=== PATIENT | female | born 1995 | race Caucasian/White ===

== ENCOUNTER 2020-05-03 08:00 | Inpatient (IN) ==
[2020-05-03] MEDS ORDERED: Famotidine 20 MG/2 ML VIAL IVP PRN (08:13)
[2020-05-03] MEDS ORDERED: Ondansetron 4 MG/2 ML VIAL IVP PRN (08:13)
[2020-05-03] MEDS ORDERED: Naloxone 0.4 MG/ML INJ IVP PRN (08:13)
[2020-05-03] MEDS ORDERED: Metoclopramide 10 MG/2 ML VIAL IVP PRN (08:13)
[2020-05-03] MEDS ORDERED: Oxytocin 20 units/ LR 1000 mL 20 UNIT/1,000 ML BAG IVC SCH (09:30)
[2020-05-03] MEDS ORDERED: miSOPROStoL 25 MCG TABLET PO PRN ×2 (09:30→10:08)
[2020-05-03 09:55] LABS: Amphetamine Screen,Urine Negative ng/mL (Cutoff=1000); Barbiturate Screen,Urine Negative ng/mL (Cutoff=200)
[2020-05-03 09:56] LABS: Benzodiazepines Screen,Urine Negative ng/mL (Cutoff=300); Cannabinoid Screen,Urine Negative ng/mL (Cutoff = 50); Cocaine Screen,Urine Negative ng/mL (Cutoff= 300); Opiate Screen,Urine Negative ng/mL (Cutoff=300); Phencyclidine Screen,Urine Negative ng/mL (Cutoff=25)
[2020-05-03 09:59] LABS: Basophils % 0.3 %; Eosinophils % 0.4 %; Hematocrit 30.8 % (35.3-44.9); Immature Granulocytes % 0.7 % (0-4); Lymphocytes # 1.4 K/mcL (0.6-4.6); Lymphocytes % 18.5 %; Mean Corpuscular HGB Conc 32.5 g/dL (31.6-35.5); Mean Corpuscular Hemoglobin 27.3 pg (28.0-33.3); Mean Corpuscular Volume 84.2 fL (83.0-100.0); Mean Platelet Volume 10.5 fL (9.4-12.4); Monocytes # 0.5 K/mcL (0.0-1.3); Monocytes % 7.2 %; Neutrophils # 5.4 K/mcL (1.6-8.9); Platelet Count 203 K/mcL (140-400); Red Blood Count 3.66 M/mcL (3.82-4.97); Red Cell Distribution Width 13.5 % (11.5-14.5); Segmented Neutrophils % 72.9 %; White Blood Count 7.5 K/mcL (4.3-11.1)
[2020-05-03] MEDS ORDERED: EPHEDrine 50 MG/ML VIAL IVP PRN (10:47)
[2020-05-03] MEDS ORDERED: Epidural Premix (fent/bupiv) 110 ML EP SCH (11:00)
[2020-05-03] MEDS: Ringers Solution, Lactated 1,000 ML IVC SCH ×2 (16:01→19:49)
[2020-05-03] MEDS ORDERED: Ropivacaine/PF 0.2% 20 ML VIAL ONE (19:20)
[2020-05-03] MEDS ORDERED: *HR* FentaNYL (PF) 100 MCG/2 ML VIAL ONE (19:20)
[2020-05-04] MEDS ORDERED: Lidocaine 1% 20 ML MDV ONE (00:01)
[2020-05-04] MEDS ORDERED: Oxytocin 20 units/ LR 1000 mL 20 UNIT/1,000 ML BAG IVC SCH (03:24)
[2020-05-04] MEDS ORDERED: Acetaminophen 325 MG TABLET PO PRN (03:24)
[2020-05-04] MEDS ORDERED: Benzocaine/Menthol 56 GM AEROSOL SPRAY TP PRN (03:24)
[2020-05-04] MEDS ORDERED: Lanolin 7 G OINT...G. TP PRN (03:24)
[2020-05-04] MEDS: Ibuprofen 600 MG TABLET PO PRN ×3 (06:14→18:42)
[2020-05-04] MEDS: Prenatal Vit/FA 1 EACH TABLET PO SCH (09:18)
[2020-05-05] MEDS: Ibuprofen 600 MG TABLET PO PRN (06:06)
[2020-05-05] MEDS: Prenatal Vit/FA 1 EACH TABLET PO SCH (07:40)
[2020-05-05 08:09] VITALS: BP 112/68
== END 2020-05-05 10:45 | disposition home or self-care (01) | DRG 806 ==
LOC: 1NENULAB 08:00 → 1NENUOBS 05-04 02:39
PROVIDERS: ADMIT Registered Nurse; ATTEND Registered Nurse